=== PATIENT | female | born 1980 | race Caucasian/White ===

== ENCOUNTER 2016-05-08 10:21 | Inpatient (IN) | payer OTHER ==
[2016-05-08] MEDS ORDERED: ZOFRAN IV ONE (11:00)
[2016-05-08] MEDS ORDERED: TORADOL IV ONE (11:00)
[2016-05-08] MEDS ORDERED: MORPHINE IV ONE ×2 (11:00→15:35)
[2016-05-08] MEDS ORDERED: NACL 0.9% 1000 ML 1,000 ML IV ONE (11:00)
[2016-05-08 11:24] LABS: Basophils % (Auto) 0.6 % (0.0-1.8); Eosinophils % (Auto) 1.6 % (0.0-4.3); Hematocrit 21.5 % (30.3-42.9); Hemoglobin 6.7 gm/dl (10.1-14.3); Mean Corpuscular HGB Conc 31 % (30-34); Mean Corpuscular Volume 81 fl (79-97); Platelet Count 247 K/mm3 (140-440); Red Blood Count 2.64 M/mm3 (3.65-5.03); Red Cell Distribution Width 17.3 % (13.2-15.2); White Blood Count 7.6 K/mm3 (4.5-11.0)
--- NOTE | 2016-05-08 11:28 | Emergency Department Report ---
ED Female HPI - General Chief complaint: Vaginal Bleeding Stated complaint: VAGINAL BLEEDING Time Seen by Provider: 05/08/16 11:00 Source: patient, EMS Mode of arrival: Stretcher Limitations: No Limitations - History of Present Illness Complaint: vaginal bleeding -: Sudden, This morning Location: other (vaginal) Radiation: non-radiating Severity scale (0 -10): 2 Quality: cramping Consistency: intermittent Improves with: none Worsens with: none Are you Now?: No - Related Data Previous Rx's Medication Instructions Recorded Last Taken Type Ferrous Sulfate [Feosol 325 MG tab] 325 mg PO BID #60 tablet 05/09/16 Unknown Rx Allergies Allergy/AdvReac Type Severity Reaction Status Date / Time No Known Allergies Allergy Verified 02/11/16 22:43 ED Review of Systems ROS: Stated complaint: VAGINAL BLEEDING Other details as noted in HPI Comment: All other systems reviewed and negative ED Past Medical Hx - Past Medical History Previous Medical History?: Yes Additional medical history: RUE PICC LINE - Surgical History Past Surgical History?: Yes Additional Surgical History: D/C in Jan. PICC LINE RUE - Social History Smoking Status: Never Smoker - Medications Home Medications: Home Medications Medication Instructions Recorded Confirmed Last Taken Type Ferrous Sulfate [Feosol 325 MG tab] 325 mg PO BID #60 tablet 05/09/16 Unknown Rx ED Physical Exam - General Limitations: Language Barrier General appearance: alert, in no apparent distress - Head Head exam: Present: atraumatic, normocephalic - Eye Eye exam: Present: normal appearance - ENT ENT exam: Present: mucous membranes moist - Neck Neck exam: Present: normal inspection - Respiratory Respiratory exam: Present: normal lung sounds bilaterally. Absent: respiratory distress - Cardiovascular Cardiovascular Exam: Present: regular rate, normal rhythm. Absent: systolic murmur, diastolic murmur, rubs, gallop - GI/Abdominal GI/Abdominal exam: Present: soft, normal bowel sounds - Extremities Exam Extremities exam: Present: normal inspection - Back Exam Back exam: Present: normal inspection - Neurological Exam Neurological exam: Present: alert, oriented X3 - Psychiatric Psychiatric exam: Present: normal affect, normal mood - Skin Skin exam: Present: warm, dry, intact, normal color. Absent: rash ED Course Vital Signs 05/08/16 05/08/16 05/08/16 10:26 14:06 15:15 Temperature 98.4 F 97.9 F 98.3 F Pulse Rate 82 78 73 Pulse Rate [ Left] Respiratory 15 16 Rate Blood Pressure 118/65 113/58 Blood Pressure 113/54 [Left] O2 Sat by Pulse 100 100 Oximetry 05/08/16 05/08/16 05/08/16 15:30 16:00 16:30 Temperature 98.1 F 97.7 F 97.9 F Pulse Rate 76 73 77 Pulse Rate [ Left] Respiratory 19 18 14 Rate Blood Pressure Blood Pressure 101/50 126/67 115/61 [Left] O2 Sat by Pulse 99 100 100 Oximetry 05/08/16 05/08/16 05/08/16 17:00 17:30 18:00 Temperature 97.8 F 97.8 F 97.9 F Pulse Rate 76 75 77 Pulse Rate [ Left] Respiratory 16 16 12 Rate Blood Pressure Blood Pressure 128/61 134/62 121/64 [Left] O2 Sat by Pulse 100 100 100 Oximetry 05/08/16 05/08/16 05/08/16 18:30 19:00 19:06 Temperature 97.9 F 97.8 F 98 F Pulse Rate 69 71 66 Pulse Rate [ Left] Respiratory 13 12 16 Rate Blood Pressure 103/73 Blood Pressure 125/74 122/56 124/60 [Left] O2 Sat by Pulse 98 100 100 Oximetry 05/08/16 05/08/16 05/08/16 19:38 20:08 21:38 Temperature 98.4 F 98 F Pulse Rate 65 67 84 Pulse Rate [ Left] Respiratory 16 16 16 Rate Blood Pressure 126/52 129/60 134/76 Blood Pressure [Left] O2 Sat by Pulse 100 100 Oximetry 05/08/16 22:00 Temperature Pulse Rate Pulse Rate [ 64 Left] Respiratory 18 Rate Blood Pressure Blood Pressure [Left] O2 Sat by Pulse Oximetry ED Medical Decision Making - Lab Data Result diagrams: 05/08/16 10:47 05/08/16 10:47 - Medical Decision Making will admit for symptomatic anemia , HG at 6, near syncopal episode, vaginal bleeding controlled , discuss case with dr. jordan and medicine will admit he will consult, pt still on her first unit of blood , discuss case dr. gaspar and agree with plan for admission. Critical care time in (mins) excluding proc time.: 35 Critical care attestation.: If time is entered above; I have spent that time in minutes in the direct care of this critically ill patient, excluding procedure time. ED Disposition Clinical Impression: Syncope, Anemia Disposition: OP ADMITTED IP TO THIS HOSP Is pt being admited?: Yes Does the pt Need Aspirin: No Condition: Good
[2016-05-08 11:34] LABS: Anion Gap 19 mmol/L; BUN/Creatinine Ratio 15.71; Blood Urea Nitrogen 11 mg/dL (7-17); Calcium 8.5 mg/dL (8.4-10.2); Carbon Dioxide 19 mmol/L (22-30); Chloride 101.9 mmol/L (98-107); Glucose 121 mg/dL (65-100); Sodium 136 mmol/L (137-145)
[2016-05-08 11:36] LABS: Mean Corpuscular Hemoglobin 26 pg (28-32)
[2016-05-08 11:38] LABS: INR 0.93 (0.87-1.13)
[2016-05-08 11:39] LABS: Partial Thromboplastin Time 26.9 Sec. (24.2-36.6)
[2016-05-08] MEDS ORDERED: NACL 0.9% 500 ML 500 ML IV ONE ×2 (12:51→22:26)
--- NOTE | 2016-05-08 14:45 | Ultrasound Report ---
ULTRASOUND OB LESS THAN 14 WEEKS - TRANSABDOMINAL AND TRANSVAGINAL INDICATION: Vaginal bleeding. Serum beta-hCG of 131,331 units. COMPARISON: 02/11/2016 FINDINGS: Transabdominal and transvaginal pelvic sonography performed in this patient with LMP unknown. An anteverted uterus, enlarged to approximately 20.7 x 9.5 x 16.4 cm again demonstrates diffuse intrinsic mixed soft tissue and small cystic appearance. A normal endometrial stripe not clearly identified and may possibly be enlarged/widened to approximately 8.0 cm as on transabdominal image 14. No significant hypervascularity though demonstrated. No significant free fluid. No structures identified. Neither of the ovaries visualized. CONCLUSION: 1. No sonographic evidence of a viable intrauterine gestation at this time with an enlarged uterus and heterogeneous/complex endometrial thickening, as described. Findings may represent a hydatidiform mole in an appropriate setting. Please correlate. 2. Neither of the ovaries identified. LICENSE DISTRIBUTOR correlation and serial serum beta-hCG values may be obtained, as appropriate. Thank you for the opportunity to participate in this patient's care.
--- NOTE | 2016-05-08 14:45 | Ultrasound Report ---
ULTRASOUND OB LESS THAN 14 WEEKS - TRANSABDOMINAL AND TRANSVAGINAL INDICATION: Vaginal bleeding. Serum beta-hCG of 131,331 units. COMPARISON: 02/11/2016 FINDINGS: Transabdominal and transvaginal pelvic sonography performed in this patient with LMP unknown. An anteverted uterus, enlarged to approximately 20.7 x 9.5 x 16.4 cm again demonstrates diffuse intrinsic mixed soft tissue and small cystic appearance. A normal endometrial stripe not clearly identified and may possibly be enlarged/widened to approximately 8.0 cm as on transabdominal image 14. No significant hypervascularity though demonstrated. No significant free fluid. No structures identified. Neither of the ovaries visualized. CONCLUSION: 1. No sonographic evidence of a viable intrauterine gestation at this time with an enlarged uterus and heterogeneous/complex endometrial thickening, as described. Findings may represent a hydatidiform mole in an appropriate setting. Please correlate. 2. Neither of the ovaries identified. SUPERMARKET MANAGER correlation and serial serum beta-hCG values may be obtained, as appropriate. Thank you for the opportunity to participate in this patient's care.
[2016-05-08] MEDS ORDERED: NACL 0.9% 500 ML 500 ML ONE (15:05)
[2016-05-08] MEDS ORDERED: MORPHINE ONE (15:33)
[2016-05-08] MEDS ORDERED: ZOFRAN ODT ONE (17:51)
[2016-05-08] MEDS ORDERED: ZOFRAN ODT PO ONE (17:59)
--- NOTE | 2016-05-08 20:34 | Admit Criteria Form ---
Admission Criteria Documentation: OBSTETRIC AND GYNECOLOGIC DISEASE GRG Clinical Indications for Admission to Inpatient Care (Place 'X' for any and all applicable criteria): Hospital admission is needed for appropriate care of the patient because of ANY ONE of the following (1)(2)(3): [ ]I. Hemodynamic instability, as indicated by ALL of the following (1)(2)(3)( 4)(5): [ ]a) Vital signs or other findings not as expected for chronic patient condition or baseline [ ]b) Instability indicated by ANY ONE of the following: [ ]i) Hypotension [ ]ii) Symptomatic tachycardia unresponsive to treatment (eg, analgesia, fluids, sedation as indicated) [ ]iii) Inadequate perfusion indicated by ANY ONE of the following: [ ]A. Lactic acidosis (greater than 2 mmol/ L) [ ]B. New abnormal capillary refill ( greater than 3 seconds) [ ]C. Reduced urine output [ ]D. New altered mental status [ ]iv) Orthostatic vital sign changes unresponsive to treatment (eg, fluids) [ ]v) Multiple IV fluid boluses required to maintain adequate blood pressure or perfusion [ ]vi) IV inotropic or vasopressor medication required to maintain adequate blood pressure or perfusion [ ]II. Obstetric infection requiring hospitalization indicated by ANY ONE of the following(13)(14): [ ]a) Chorioamnionitis [ ]b) Endometritis (except mild endometritis) [ ]c) Pelvic abscess [ ]d) Peritonitis [ ]e) Septic pelvic thrombophlebitis [ ]III. Amniotic fluid or pulmonary embolism(4)(5)(6) [ ]IV. Suspected peritonitis or ectopic requiring monitoring beyond scope of 24 hours or observation care(7)(8) [ ]V. compromise requiring hospitalization indicated by ALL of the following(9)(10): [ ]a) compromise indicated by ANY ONE of the following(11): [ ]i) Abnormal heart rate monitoring [ ]ii) Abnormal contraction stress test [ ]iii) Abnormal biophysical profile [ ]iv) Abnormal Doppler flow in vessels (ie, Doppler velocimetry) (12) [ ]b) Persistence of compromise indicators during evaluation and observation monitoring [ ]. Ovarian hyperstimulation syndrome requiring hospitalization[A] indicated by ALL of the following(15): [ ]a) Recent ovarian stimulation with gonadotropins, or evidence on ultrasound of spontaneous emergence of large number of ovarian follicles [ ]b) Evidence of severe ovarian hyperstimulation syndrome indicated by ANY ONE of the following: [ ]i) Abdominal pain unresponsive to oral therapy [ ]ii) Acute respiratory distress syndrome [ ]iii) Electrolyte imbalance ( eg, hyponatremia, hyperkalemia) [ ]iv) Elevated liver enzymes [ ]v) Evidence of thromboembolism [ ]vi) Hemoconcentration (hematocrit greater than 45 % (0.45)) [ ]vii) Inability to maintain oral intake adequate to prevent hemoconcentration [ ]viii) Marked hypotension from baseline (eg, SBP 20 mmHg below patients usual pressure) [ ]ix) Oliguria or anuria [ ]x) Ovarian torsion [ ]xi) Pleural or pericardial effusion on x-ray or echocardiogram [ ]xii) Rapid increase in serum creatinine to greater than 1.2 mg/dL (106 micromoles/L) or creatinine clearance less than 50 mL/min/1.73m2 (0.84 mL/ sec/1.73m2) [ ]xiii) Ruptured ovarian cyst with hemorrhage [ ]xiv) Severe abdominal pain or peritoneal signs [ ]xv) Tense ascites that cannot be managed with paracentesis in outpatient setting [ ]VII.Pelvic infection requiring hospitalization indicated by ANY ONE of the following (16): [ ]a) Outpatient treatment has failed or is not appropriate (eg, inpatient monitoring required) [ ]b) Pelvic abscess [ ]c) Surgical emergency cannot be excluded (eg, rigid abdomen) [ ]d) Vomiting precluding outpatient and observation care management VIII. loss complications requiring inpatient medical treatment indicated by ANY ONE of the following (4)(7)(9): [ ]a) Fever [ ]b) Peritonitis [ ]c) Sepsis [ ]d) Severe abdominal pain [ ]IX. or patient requiring monitoring for severe heart failure, pulmonary disease, or other comorbid condition (eg, peripartum cardiomyopathy) (4)(17) [ ]X. patient with rupture of membranes requiring hospitalization indicated by ANY ONE of the following: [ ]a) Chorioamnionitis, cloudy amniotic fluid, or other evidence of infection [ ]b) compromise or other need for monitoring (11) [ ]c) Gestation longer than 23 weeks and ANY ONE of the following: [ ]i) Abnormal (noncephalic) presentation [ ]ii) Inadequate home environment (eg, home too far from hospital, unable to rapidly return to hospital) [ ]d) Temperature greater than 100.4 degrees F (38 degrees C)( oral) [ ]e) Threatened labor requiring monitoring beyond scope (eg, over 24 hours) of observation Care [ ] XI. complications, including severe lacerations, infections, or retained placenta (19) [ X] XII.Uterine bleeding with high-risk features indicated by ANY ONE of the following (4): [ ]a) Active major hemorrhage (eg, hemorrhage) [ ]b) Coagulopathy with active bleeding [ ]c) Gestational trophoblastic disease (eg, molar ) (20 ) [ ]d) (longer than 23 weeks) and ANY ONE of the following: [ ]i) Pain [ ]ii) Placental abruption, known or suspected [ ]iii) Placenta accrete, known or suspected(21) [ ]iv) Placenta previa, known or suspected [ ]v) Vasa previa [X ]e) Severe anemia [ ]XIII. Obstetric or Gynecologic Disease, condition or symptom for which ANY ONE of the following: [ ]a) Emergency and observation care have failed or are not considered appropriate ( Also use General Criteria: Observation Care Criteria as appropriate) [ ]b) Presence of a General Admission Criteria or Pediatric General Admission Criteria The original [facility] content created by [facility] has been revised. The portions of the content which have been revised are identified through the use of italic text or in bold, and [facility] has neither reviewed nor approved the modified material.All other unmodified content is copyright [facility]. Please see references footnoted in the original [facility] edition 2016 Admission Criteria Met: Yes
--- NOTE | 2016-05-08 22:31 | History and Physical Report ---
History of Present Illness Date of examination: 05/08/16 Date of admission: 05/08/16 20:04 Chief complaint: Feeling weak Excessive vaginal bleeding 2 days History of present illness: 35 y/o female comes in for Feeling weak Excessive vaginal bleeding 2 days. No syncope or SOB Past History Past Medical History: other (molar ) Past Surgical History: Other (Molar removed) Medications and Allergies Allergies Allergy/AdvReac Type Severity Reaction Status Date / Time No Known Allergies Allergy Verified 02/11/16 22:43 Home Medications Medication Instructions Recorded Confirmed Last Taken Type No Known Home Medications [No 05/08/16 05/08/16 Unknown History Reported Home Medications] Active Meds: Active Medications Sodium Chloride (Nacl 0.9% 500 Ml) 500 mls @ 0 mls/hr IV ONCE ONE PRN Reason: As Directed Stop: 05/08/16 22:27 Review of Systems All systems: negative Constitutional: no weight loss, no weight gain Ears, nose, mouth and throat: no hoarseness, no sore throat Breasts: deferred Cardiovascular: no chest pain, no orthopnea, no lightheadedness, no shortness of breath Respiratory: no cough with sputum, no dyspnea on exertion, no congestion, no wheezing Gastrointestinal: no nausea, no vomiting, no diarrhea Genitourinary Female: menorrhagia Menstruation: period heavy Musculoskeletal: no neck stiffness, no neck pain Integumentary: no rash, no pruritis, no redness Neurological: no seizures, no syncope Psychiatric: no anxiety, no depression Endocrine: no cold intolerance, no heat intolerance, no polyphagia, no excessive thirst, no polydipsia, no polyuria Hematologic/Lymphatic: no easy bruising, no easy bleeding Allergic/Immunologic: no urticaria, no allergic rhinitis, no wheezing Exam - Physical Exam Narrative exam: Well developed well nourished female - Constitutional Vitals: Temp Pulse Resp BP Pulse Ox 98 F 84 16 134/76 100 05/08/16 20:08 05/08/16 21:38 05/08/16 21:38 05/08/16 21:38 05/08/16 20:08 General appearance: Present: no acute distress, well-nourished - EENT Eyes: Present: PERRL ENT: hearing intact, clear oral mucosa - Neck Neck: Present: supple, normal ROM - Respiratory Respiratory effort: normal Respiratory: bilateral: CTA - Cardiovascular Heart Sounds: Present: S1 & S2. Absent: rub, click - Extremities Extremities: pulses symmetrical, No edema Peripheral Pulses: within normal limits - Abdominal General gastrointestinal: Present: soft, non-tender, non-distended, normal bowel sounds Female genitourinary: Present: normal - Integumentary Integumentary: Present: clear, warm, dry - Musculoskeletal Musculoskeletal: gait normal, strength equal bilaterally - Psychiatric Psychiatric: appropriate mood/affect, intact judgment & insight - Neurologic Neurologic: CNII-XII intact, moves all extremities Results - Labs CBC & Chem 7: 05/08/16 10:47 05/08/16 10:47 Labs: Laboratory Last Values WBC 7.6 K/mm3 (4.5-11.0) 05/08/16 10:47 RBC 2.64 M/mm3 (3.65-5.03) L 05/08/16 10:47 Hgb 6.7 gm/dl (10.1-14.3) L 05/08/16 10:47 Hct 21.5 % (30.3-42.9) L 05/08/16 10:47 MCV 81 fl (79-97) 05/08/16 10:47 MCH 26 pg (28-32) L 05/08/16 10:47 MCHC 31 % (30-34) 05/08/16 10:47 RDW 17.3 % (13.2-15.2) H 05/08/16 10:47 Plt Count 247 K/mm3 (140-440) 05/08/16 10:47 Lymph % (Auto) 13.8 % (13.4-35.0) 05/08/16 10:47 Beckham % (Auto) 6.5 % (0.0-7.3) 05/08/16 10:47 Eos % (Auto) 1.6 % (0.0-4.3) 05/08/16 10:47 Baso % (Auto) 0.6 % (0.0-1.8) 05/08/16 10:47 Lymph # 1.0 K/mm3 (1.2-5.4) L 05/08/16 10:47 Beckham # 0.5 K/mm3 (0.0-0.8) 05/08/16 10:47 Eos # 0.1 K/mm3 (0.0-0.4) 05/08/16 10:47 Baso # 0.0 K/mm3 (0.0-0.1) 05/08/16 10:47 Seg Neutrophils % 77.5 % (40.0-70.0) H 05/08/16 10:47 Seg Neutrophils # 5.9 K/mm3 (1.8-7.7) 05/08/16 10:47 PT 12.4 Sec. (12.2-14.9) 05/08/16 10:55 INR 0.93 (0.87-1.13) 05/08/16 10:55 APTT 26.9 Sec. (24.2-36.6) 05/08/16 10:55 Sodium 136 mmol/L (137-145) L 05/08/16 10:47 Potassium 4.0 mmol/L (3.6-5.0) 05/08/16 10:47 Chloride 101.9 mmol/L (98-107) 05/08/16 10:47 Carbon Dioxide 19 mmol/L (22-30) L 05/08/16 10:47 Anion Gap 19 mmol/L 05/08/16 10:47 BUN 11 mg/dL (7-17) 05/08/16 10:47 Creatinine 0.7 mg/dL (0.7-1.2) 05/08/16 10:47 Estimated GFR > 60 ml/min 05/08/16 10:47 BUN/Creatinine Ratio 15.71 % 05/08/16 10:47 Glucose 121 mg/dL (65-100) H 05/08/16 10:47 Calcium 8.5 mg/dL (8.4-10.2) 05/08/16 10:47 HCG, Quant [id number] mIU/mL (0-4) H 05/08/16 10:55 Blood Type O POSITIVE 05/08/16 10:47 Antibody Screen Negative 05/08/16 10:47 Crossmatch See Detail 05/08/16 10:47 Short CBC 05/08/16 Range/Units 10:47 WBC 7.6 (4.5-11.0) K/mm3 Hgb 6.7 L (10.1-14.3) gm/dl Hct 21.5 L (30.3-42.9) % Plt Count 247 (140-440) K/mm3 [facility] 05/08/16 10:47 Sodium 136 L Potassium 4.0 Chloride 101.9 Carbon Dioxide 19 L BUN 11 Creatinine 0.7 Glucose 121 H Calcium 8.5 Short CBC 05/08/16 Range/Units 10:47 WBC 7.6 (4.5-11.0) K/mm3 Hgb 6.7 L (10.1-14.3) gm/dl Hct 21.5 L (30.3-42.9) % Plt Count 247 (140-440) K/mm3 [facility] 05/08/16 10:47 Sodium 136 L Potassium 4.0 Chloride 101.9 Carbon Dioxide 19 L BUN 11 Creatinine 0.7 Glucose 121 H Calcium 8.5 Assessment and Plan Advance Directives: Yes (Full code) VTE prophylaxis?: Chemical Plan of care discussed with patient/family: Yes - Patient Problems (1) Acute blood loss anemia Current Visit: Yes Status: Acute Plan to address problem: Transfuse 2 units of PRBC (2) Molar Current Visit: Yes Status: Chronic Plan to address problem: Molar removed. Dr Walter consulted (3) DVT prophylaxis Current Visit: Yes Status: Acute Plan to address problem: on scd's
[2016-05-09] MEDS ORDERED: NACL 0.9% 500 ML 500 ML ONE (03:10)
[2016-05-09] MEDS ORDERED: MORPHINE IV ONE (06:16)
--- NOTE | 2016-05-09 10:14 | Discharge Summary ---
Providers - Providers Date of Admission: 05/08/16 20:04 Date of discharge: 05/09/16 Attending physician: LES RUBIO 05/08/16 22:28 Consult to Physician [CONS] Routine (Cancelled) Consulting Provider: CHELSIE CRAVEN Reason For Exam: acute anemia,molar Primary care physician: DEPUTY BUILDING GUARD Hospitalization Condition: Good Disposition: DISCHARGED TO HOME OR SELFCARE Core Measure Documentation - Palliative Care Palliative Care/ Comfort Measures: Not Applicable - Core Measures Any of the following diagnoses?: none Exam - Constitutional Vitals: Temp Pulse Resp BP Pulse Ox 97.9 F 76 20 117/65 98 05/09/16 10:01 05/09/16 10:01 05/09/16 10:01 05/09/16 10:01 05/09/16 08:00 General appearance: Present: no acute distress, well-nourished - EENT Eyes: Present: PERRL, EOM intact - Neck Neck: Present: supple, normal ROM - Respiratory Respiratory effort: normal Respiratory: negative: diminished, rales, rhonchi, wheezing - Cardiovascular Rhythm: regular Heart Sounds: Present: S1 & S2 - Extremities Extremities: no ischemia, pulses intact, pulses symmetrical Peripheral Pulses: within normal limits - Abdominal General gastrointestinal: Present: soft, non-tender, non-distended, normal bowel sounds - Integumentary Integumentary: Present: clear, warm - Musculoskeletal Musculoskeletal: strength equal bilaterally, generalized weakness - Psychiatric Psychiatric: appropriate mood/affect, cooperative - Neurologic Neurologic: CNII-XII intact, moves all extremities Plan Activity: no restrictions Diet: regular Additional Instructions: If you have any new syncopal episodes or excessive vaginal bleeding, contact your HISTORY INSTRUCTOR or go to emergency room. f/u Dr Peter Hernandez [HISTORY INSTRUCTOR/Onc] in 1 week Follow up with: PRIMARY CARE, [Primary Care Provider] - 3-5 Days
[2016-05-09] MEDS ORDERED: TYLENOL PO ONE (15:00)
[2016-05-09 15:49] VITALS: BP 124/80
== END 2016-05-09 18:57 | disposition home or self-care (01) | DRG 781 ==
LOC: ED 10:21 → 3A 20:04
PROVIDERS: ATTEND Internal Medicine
PROC: 30233N1 Transfusion of Nonautologous Red Blood Cells into Peripheral Vein, Percutaneous Approach (ICD-10-PCS; principal; 2016-05-09)
DX: O02.0 Blighted ovum and nonhydatidiform mole (principal); O99.011 Anemia complicating pregnancy, first trimester; O08.1 Delayed or excessive hemorrhage following ectopic and molar pregnancy; D62 Acute posthemorrhagic anemia; Z3A.14 14 weeks gestation of pregnancy
CPT/HCPCS: 36415; 76801; 76817; 80048; 84702; 85025; 85610; 85730; 86850; 86900; 86901; 86920; 96361; 96374; 96375; 96376; J1885; J2270; J2405; J7030; J7040; P9016; Q0162